=== PATIENT | female | born 1975 | race Caucasian/White ===

== ENCOUNTER 2023-07-18 13:51 | Outpatient (OUT) | payer BC, SELFPAY ==
--- NOTE | 2023-07-18 14:02 | MM_ITS ---
Patient: MAGY SEPULVEDA Exam Date: 07/18/2023 : 1975 Gender:F Ordering : MRS. VAUGHN CHAPPELL . Admission #: [id number] Family : Order #: [id number] CLICK HERE TO VIEW EXAM RADIOLOGY REPORT PROCEDURE: MM TOMOSYNTHESIS SCREENING BI COMPARISON: MG MAMM SCREEN 3D KHAI CAD, 02/28/2021. INDICATIONS: Screening Calculator Name NCI Breast Cancer Risk Assessment Tool 5 Year Breast Cancer Risk 0.80% Lifetime Breast Cancer Risk 8.20% Personal Breast Cancer No Personal Ovarian Cancer No Treatments None Family Cancers None LOCATION: [facility] BREAST COMPOSITION: Heterogeneously dense,which may obscure small masses. FINDINGS: DIAGNOSTIC CATEGORY 1--NEGATIVE. NO CHANGE FROM COMPARISON ASSESSMENT. Scattered benign-appearing calcifications are present. Scattered benign-appearing lymph nodes are present. RIGHT BREAST: No significant suspicious finding. LEFT BREAST: No significant suspicious finding. RECOMMENDATIONS: ROUTINE MAMMOGRAM AND CLINICAL EVALUATION IN 12 MONTHS. PLEASE NOTE: A NORMAL MAMMOGRAM DOES NOT EXCLUDE THE POSSIBILITY OF BREAST CANCER. A CLINICALLY SUSPICIOUS PALPABLE LUMP SHOULD BE BIOPSIED. Dictated by: Aden Son MD on 07/19/2023 at 08:38 Approved by: Aden Son MD on 07/19/2023 at 08:40
== END 2023-07-18 13:52 | disposition home or self-care (01) ==
LOC: MAMMO 13:56
PROVIDERS: PCP Nurse Practitioner; Visit Provider Nurse Practitioner
DX: Z12.31 Encounter for screening mammogram for malignant neoplasm of breast (principal)
CPT/HCPCS: 77063; 77067

== ENCOUNTER 2025-04-30 07:39 | Outpatient (OUT) | payer BC, SELFPAY ==
--- NOTE | 2025-04-30 07:47 | MM_ITS ---
Patient Name: MAGY SEPULVEDA MR#: [id number] : 1975 Exam Date: 04/30/2025 Ordering Doctor: VAUGHN CHAPPELL . RADIOLOGY REPORT PROCEDURE: MM TOMOSYNTHESIS SCREENING BI COMPARISON: MM TOMOSYNTHESIS SCREENING BI, 07/18/2023. MG MAMM SCREEN 3D KHAI CAD, 02/28/2021. MG MAMM SCREEN KHAI W CAD, 04/21/2019. MG MAMM KHAI SCRN W CAD DIG, 07/20/2014. INDICATIONS: Screening Calculator Name NCI Breast Cancer Risk Assessment Tool 5 Year Breast Cancer Risk 0.90% Lifetime Breast Cancer Risk 7.90% Personal Breast Cancer No Personal Ovarian Cancer No Treatments None Family Cancers None LOCATION: [facility] BREAST COMPOSITION: The breasts are heterogeneously dense, which may obscure small masses. FINDINGS: RIGHT BREAST: No significant suspicious finding. LEFT BREAST: No significant suspicious finding. DIAGNOSTIC CATEGORY 1--NEGATIVE. RECOMMENDATIONS: ROUTINE MAMMOGRAM AND CLINICAL EVALUATION IN 12 MONTHS. PLEASE NOTE: A NORMAL MAMMOGRAM DOES NOT EXCLUDE THE POSSIBILITY OF BREAST CANCER. A CLINICALLY SUSPICIOUS PALPABLE LUMP SHOULD BE BIOPSIED. Dictated by: Cuate Hayes MD on 04/30/2025 at 12:25 Approved by: Cuate Hayes MD on 04/30/2025 at 12:32
== END 2025-04-30 07:40 | disposition home or self-care (01) ==
LOC: MAMMO 07:44
PROVIDERS: PCP Nurse Practitioner; Visit Provider Nurse Practitioner
DX: Z12.31 Encounter for screening mammogram for malignant neoplasm of breast (principal)
CPT/HCPCS: 77063; 77067